=== PATIENT | female | born 1990 | race Caucasian/White ===

== ENCOUNTER 2016-10-13 15:49 | Emergency (ER) | payer OTHER ==
[2016-10-13 16:51] LABS: RBC URINE 6 /hpf (0-3); URINE BACTERIA RARE (<OCC); URINE BILIRUBIN NEGATIVE (NEGATIVE); URINE COLOR Yellow (YELLOW); URINE GLUCOSE (UA) NORMAL (Normal); URINE KETONE NEGATIVE (NEGATIVE); URINE LEUKOCYTE ESTERASE NEG Leu/uL (Negative); URINE PROTEIN 1+ mg/dL (NEGATIVE); WBC URINE 1 /hpf (0-5)
[2016-10-13 16:53] LABS: URINE BLOOD TRACE (NEGATIVE)
--- NOTE | 2016-10-13 17:09 | OBHP ---
Datetime: 10/13/2016 16:21 IP Adm Impression: Postterm, intrauterine ; No Active Labor IP Admit Plan: Discharge home Admit Comment, IP Provider: chief complaint-vainal discharge HPI 25 y/o at 40.1 wga with c/o notrcing mucosy vaginal discharge and spotting Patient denies nausea, vomting, headache, chest pain, shortness of breath, numbness or tingling in hands and feet course GBS positive PMH denies PSH denies OBGYN HX ; HX of delivery; [id number] Social hx denies tobacco,alcohol or illicit drug use Exam see exam section A/P 25 y/o at 40.1 wga with c/o noticing discharge today.Patient examined and then re-examine d again,cervix unchanged .Patient denies any abdominal pain or contractions. -patient discharged home -patient given labor precautions -patient to follow up in clinic in am Pelvic Type - PN: Adequate Extremities - PN: Normal Abdomen - PN: Normal Back - PN: Normal Breast - PN: Normal Lungs - PN: Normal Heart - PN: Normal Neurologic - PN: Normal General - PN: Normal Contraction Comments Provider: mike Gestation - Est Wks by US: 40.1 IP Hx Assessment: The History has been Reviewed and is Current EGA AdmitDate IP: 40.1 Vital Signs Provider: Reviewed; Within Normal Limits IP Chief Complaint: Uterine contractions FHR Category Provider Fetus A: Category I Dilatation, Provider: 1 Effacement, Provider: thick Station, Provider: high Genitourinary Exam: Normal DTRs - PN: Normal
== END 2016-10-13 17:07 | disposition home or self-care (01) ==
LOC: C.EROB 15:49
DX: O26.853 Spotting complicating pregnancy, third trimester (principal); Z3A.40 40 weeks gestation of pregnancy

== ENCOUNTER 2017-02-28 20:05 | Emergency (ER) | payer OTHER ==
[2017-02-28 20:28] VITALS: O2SAT 99
[2017-02-28 21:18] LABS: RBC URINE < 1 /hpf (0-3); URINE BILIRUBIN NEGATIVE (NEGATIVE); URINE BLOOD 1+ (NEGATIVE); URINE COLOR Yellow (YELLOW); URINE GLUCOSE (UA) NORMAL (Normal); URINE KETONE TRACE mg/dL (NEGATIVE); URINE LEUKOCYTE ESTERASE NEG Leu/uL (Negative); URINE PROTEIN NEGATIVE (NEGATIVE); URINE UROBILINOGEN NORMAL mg/dL (0.2-1.0); WBC URINE < 1 /hpf (0-5)
--- NOTE | 2017-02-28 21:22 | C.PDOC ---
History Of Present Illness 26 YO female w/PMHx of anxiety come in for evaluation of few episodes of panic attack developed for past few days. Pt reports, "episodes area self- limited, had similar in past and c/w my anxiety". Pt admits, was taking xanax in past as need for panic attack, ran out of medication. At present time, pt is asymptomatic. Pt denies headache, dizziness, neck apin, CP, SOB, palpitation, cough, wheezing, abd. pain, N/V/D. Ambulate to Ed for evaluation, appears comfortable, appropriate, not in any apparent distress. Time Seen by Provider: 02/28/17 20:31 Chief Complaint (Nursing): Anxiety History Per: Patient Past Medical History Reviewed: Historical Data, Nursing Documentation, Vital Signs Vital Signs: Last Vital Signs Temp 98.3 F 02/28/17 20:21 Pulse 74 02/28/17 20:21 Resp 20 02/28/17 20:21 BP 110/73 02/28/17 20:21 Pulse Ox 99 02/28/17 21:22 - Medical History PMH: Anxiety Denies: Diabetes, Hepatitis, HIV, HTN, Seizures, Sexually Transmitted Disease - [facility] Procedures ASPIRAT CURET-POST DELIV (11/02/13) Family History: States: Unknown Family Hx - Social History Hx Tobacco Use: No (DENIED) Hx Alcohol Use: No (DENIED) Hx Substance Use: No (DENIED) - Immunization History Hx Tetanus Toxoid Vaccination: No Hx Influenza Vaccination: No Hx Pneumococcal Vaccination: No Review Of Systems Except As Marked, All Systems Reviewed And Found Negative. Constitutional: Negative for: Fever, Chills Eyes: Negative for: Vision Change ENT: Negative for: Ear Discharge, Nose Discharge, Throat Pain Cardiovascular: Negative for: Chest Pain, Palpitations, Edema, Light Headedness Respiratory: Negative for: Cough, Shortness of Breath, Wheezing Gastrointestinal: Negative for: Nausea, Vomiting, Abdominal Pain, Diarrhea Genitourinary: Negative for: Dysuria, Frequency, Incontinence Musculoskeletal: Negative for: Neck Pain, Back Pain Skin: Negative for: Rash Neurological: Negative for: Weakness, Numbness, Altered Mental Status, Headache , Dizziness Psych: Positive for: Anxiety. Negative for: Suicidal ideation Physical Exam - Physical Exam Appears: Well, Non-toxic, No Acute Distress Skin: Normal Color, Warm, Dry, No Rash Head: Normacephalic Eye(s): bilateral: PERRL Nose: No Flaring, No Discharge Oral Mucosa: Moist, No Drooling Tongue: Normal Appearing Lips: Normal Appearing Throat: No Erythema, No Drooling Neck: Trachea Midline, Supple Cardiovascular: Rhythm Regular, No Murmur, No JVD Respiratory: No Decreased Breath Sounds, No Accessory Muscle Use, No Stridor, No Wheezing Gastrointestinal/Abdominal: Soft, No Tenderness, No Distention, No Guarding Back: No CVA Tenderness Extremity: Normal ROM, No Pedal Edema, No Deformity Neurological/Psych: Oriented x3, Normal Speech, Normal Motor, Normal Sensation, Normal Reflexes ED Course And Treatment - Laboratory Results Urine POC: Negative ECG: Interpreted By Me, Viewed By Me (and ED attending) Interpretation Of ECG: SR@64/min, NAD, no acute T wave or ST-T changes. O2 Sat by Pulse Oximetry: 99 Pulse Ox Interpretation: Normal - Radiology CXR: Interpreted by Me, Viewed By Me CXR Interpretation: Yes: No Acute Disease Progress Note: On re-eval, pt is afebrile, hemodynamicaly stable. Non-toxic, tolerate po well in ED. PulseOx 99% RA. ENT: no acute findings, uvula midline , no edema. neck: Supple, (-) meningeal sign. Lungs: CTA B/L, BS equal B/L. CVS: (+)S1S2, reg. Abd: benign, (-) guaridng, (-) rebound, (-) localized tenderness. neurologicaly intact. EKG, CXR- no acute infiltrate. Pt was seen by crisis Valentina and outpt F/U given. Pt has clinical findings c/w SOB r/o anxiety. Parent advised and ref. to F/u with PMD, Psych in 2-3 days for re- evaluation. return to ED if any worsening or new changes. Disposition Counseled Patient/Family Regarding: Studies Performed, Diagnosis, Need For Followup - Disposition Referrals: [facility] [Outside] [facility] [Outside] Disposition: HOME/ ROUTINE Disposition Time: 21:22 Condition: STABLE Additional Instructions: FOLLOW UP WITH PSYCHIATRIST IN 2-3 DAYS FOR FURTHER EVALUATION AND TREATMENT. RETURN TO ED IF ANY WORSENING OR NEW CHANGES. Instructions: Anxiety (ED) Forms: [employer] (Indonesian) - Clinical Impression Clinical Impression: Anxiety
[2017-02-28 22:19] VITALS: BP 114/70; PULSE 73; RESP 16; TEMP 97.8
--- NOTE | 2017-03-01 08:40 | RAD ---
Chest x-ray two views History: Cough. Comparison: None available. Findings: No focal infiltrate or effusion. Bibasilar breast and nipple shadows. Heart size within normal limits. Impression No focal infiltrate or effusion.
--- NOTE | 2017-03-01 22:13 | CARD ---
APPROVED REPORT EKG Measurement Heart [id number] <Conclusion> Normal sinus rhythm
== END 2017-02-28 22:19 | disposition home or self-care (01) ==
LOC: C.ER 20:05
DX: F41.9 Anxiety disorder, unspecified (principal)